=== PATIENT | female | born 1960 | race Caucasian/White ===

== ENCOUNTER 2018-08-07 19:03 | Emergency (ER) | payer OTHER ==
[~2018-08-07] VITALS: Ht 175.3 cm; Wt 86.6 kg
[~2018-08-07 19:03] MED LIST: LISINOPRIL10 MG PO
[2018-08-07 19:42] LABS: ABSOLUTE EOSINOPHILS 0.3 thou/uL (0.0-0.7); ABSOLUTE LYMPHOCYTES 2.8 thou/uL (0.8-5.3); ABSOLUTE MONOCYTES 0.6 thou/uL (0.0-1.2); ABSOLUTE NEUTROPHILS 3.9 thou/uL (1.6-8.1); BASOPHILS 0.6 %; HEMATOCRIT 40.2 % (37.0-47.0); HEMOGLOBIN 13.6 gm/dL (12.0-15.0); LYMPHOCYTES 36.1 %; MCH 30.1 pg (26.0-34.0); MCHC 33.8 g/dL (28.0-37.0); MCV 89.2 fL (80.0-100.0); MONOCYTES 8.2 %; MPV 9.1 fl. (7.2-11.1); NUCLEATED RBCS 0 /100WBC; PLATELET COUNT* 262 thou/uL (150-400); POLYS 51.1 %; RBC 4.51 mil/uL (4.20-5.00); RDW-CV 13.5 % (10.5-14.5); WBC 7.7 thou/uL (4.0-11.0)
[2018-08-07 19:46] LABS: ANION GAP 6 mmol/L (7-16); BUN 21 mg/dL (7-18); CALCIUM 8.9 mg/dL (8.5-10.1); CHLORIDE 103 mmol/L (98-107); CO2 30 mmol/L (21-32); CREATININE 0.9 mg/dL (0.6-1.3); GLUCOSE 103 mg/dL (70-99); POTASSIUM 3.2 mmol/L (3.5-5.1); SODIUM 139 mmol/L (136-145)
[2018-08-07 19:49] LABS: PROTIME 10.1 Seconds (9.20-11.50)
[2018-08-07 19:57] LABS: ALBUMIN 3.6 g/dL (3.4-5.0); ALKALINE PHOSPHATASE 95 U/L (46-116); LIPASE 160 U/L (73-393); NT-PRO BRAIN NAT PEPTIDE 63 pg/mL (<300); SGOT 19 U/L (15-37); SGPT 34 U/L (30-65); TOTAL BILIRUBIN 0.4 mg/dL (<0.1-1.0); TOTAL PROTEIN 6.9 g/dL (6.4-8.2); TROPONIN-I LEVEL <0.06 ng/mL (<0.06)
[2018-08-07 19:58] LABS: URINE BILIRUBIN NEGATIVE (Negative); URINE BLOOD NEGATIVE (Negative); URINE CLARITY CLEAR; URINE COLOR STRAW; URINE GLUCOSE-RANDOM NEGATIVE (Negative); URINE KETONES NEGATIVE (Negative); URINE LEUKOCYTES-REFLEX NEGATIVE (Negative); URINE NITRITE-REFLEX NEGATIVE (Negative); URINE PROTEIN NEGATIVE (Negative); URINE UROBILINOGEN 0.2 E.U./dl (0.2-1.0)
[2018-08-07 21:50] VITALS: BP 149/81
--- NOTE | 2018-08-08 11:07 | EKG ---
[place] [address] ELECTROCARDIOGRAM REPORT Name: GENEANDRZEJ Room: [facility]#: [id number] Admission: 08/07/18 Attend Phys: Discharge: 08/07/18 Date of : 58 Report #: [id number] THIS REPORT FOR: //name// 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[place] : 1960 Requested By: Lorena Georges Order Number: [id number] MD: Stefano Gurrola Measurements Intervals [place] Rate: 72 P: 22 W[place]: 145 QRS: -2 QRSD: 93 T: 60 QT: 404 QTc: 443 Interpretive Statements Sinus rhythm Abnormal R-wave progression, early transition Compared to ECG 08/10/2010 16:13:18 No significant changes Electronically Signed On 08-08-2018 11:07:49 [employer] by Stefano Gurrola [email or web address] <ELECTRONICALLY SIGNED> By: Stefano Gurrola MD, [facility] 08/08/18 1107 09 09 Stefano Gurrola MD, FACC /EPI
== END 2018-08-07 21:51 | disposition home or self-care (01) ==
LOC: M.ERS 19:03
PROVIDERS: Emergency Medicine
DX: R07.89 Other chest pain (principal); Z90.710 Acquired absence of both cervix and uterus; Z98.890 Other specified postprocedural states

== ENCOUNTER 2018-08-23 15:15 | Emergency (ER) | payer OTHER ==
[~2018-08-23] VITALS: Ht 175.3 cm; Wt 90.7 kg
[2018-08-23] MEDS ORDERED: COZAAR 25 MG TA25 M1 PO (15:29)
[2018-08-23] MEDS ORDERED: BACTRIM DS TAB1 EACH PO (15:29)
[2018-08-23] MEDS ORDERED: TYLENOL EXTRA500 MG PO (15:30)
[2018-08-23 15:48] LABS: HEMATOCRIT 41.8 % (37.0-47.0); HEMOGLOBIN 13.9 gm/dL (12.0-15.0); MCH 29.5 pg (26.0-34.0); MCHC 33.3 g/dL (28.0-37.0); MCV 88.4 fL (80.0-100.0); MPV 8.7 fl. (7.2-11.1); NUCLEATED RBCS 0 /100WBC; PLATELET COUNT* 267 thou/uL (150-400); RBC 4.73 mil/uL (4.20-5.00); RDW-CV 13.6 % (10.5-14.5); WBC 13.9 thou/uL (4.0-11.0)
[2018-08-23 15:49] LABS: URINE BILIRUBIN NEGATIVE (Negative); URINE BLOOD NEGATIVE (Negative); URINE CLARITY CLEAR; URINE COLOR YELLOW; URINE GLUCOSE-RANDOM NEGATIVE (Negative); URINE KETONES TRACE (Negative); URINE LEUKOCYTES-REFLEX NEGATIVE (Negative); URINE NITRITE-REFLEX NEGATIVE (Negative); URINE PROTEIN NEGATIVE (Negative); URINE SPECIFIC GRAVITY <= 1.005 (1.005-1.030); URINE UROBILINOGEN 0.2 E.U./dl (0.2-1.0)
[2018-08-23 15:58] LABS: CALCIUM 8.8 mg/dL (8.5-10.1); CREATININE 0.9 mg/dL (0.6-1.3); POTASSIUM 3.3 mmol/L (3.5-5.1)
[2018-08-23 16:09] LABS: URINE BILIRUBIN NEGATIVE (Negative); URINE BLOOD NEGATIVE (Negative); URINE CLARITY CLEAR; URINE COLOR YELLOW; URINE GLUCOSE-RANDOM NEGATIVE (Negative); URINE KETONES NEGATIVE (Negative); URINE LEUKOCYTES-REFLEX NEGATIVE (Negative); URINE NITRITE-REFLEX NEGATIVE (Negative); URINE PROTEIN NEGATIVE (Negative); URINE SPECIFIC GRAVITY <= 1.005 (1.005-1.030); URINE UROBILINOGEN 0.2 E.U./dl (0.2-1.0)
[2018-08-23 16:14] LABS: ALBUMIN 3.6 g/dL (3.4-5.0); TOTAL BILIRUBIN 0.8 mg/dL (<0.1-1.0); TOTAL PROTEIN 7.3 g/dL (6.4-8.2)
[2018-08-23 16:21] LABS: ABSOLUTE MONOCYTES 0.8 thou/uL (0.0-1.2); ABSOLUTE NEUTROPHILS 12.1 thou/uL (1.6-8.1); PLATELET ESTIMATE ADEQUATE
[2018-08-23 17:18] LABS: INFLUENZA A ANTIGEN None Detected (None Detect); INFLUENZA B ANTIGEN None Detected (None Detect)
[2018-08-23 17:58] VITALS: BP 170/86
[2018-08-23] MEDS ORDERED: AUGMENTIN 500-1 EACH PO (18:04)
[2018-08-23] MEDS ORDERED: ACETAMINOPHEN-1 EAC1 PO (18:04)
[2018-08-23] MEDS ORDERED: CEFDINIR300 MG PO (18:06)
== END 2018-08-23 18:13 | disposition home or self-care (01) ==
LOC: M.ERS 15:15
PROVIDERS: Physician Assistant
DX: R50.9 Fever, unspecified (principal); M54.5 Low back pain; Z90.710 Acquired absence of both cervix and uterus

== ENCOUNTER 2020-11-17 17:27 | Emergency (ER) | payer OTHER ==
[~2020-11-17] VITALS: Ht 175.3 cm; Wt 98.4 kg
[~2020-11-17 17:27] MED LIST changes: +ACETAMINOPHEN-1 EAC1 PO; +AUGMENTIN 500-1 EACH PO; +BACTRIM DS TAB1 EACH PO; +CEFDINIR300 MG PO; +COZAAR 25 MG TA25 M1 PO; +TYLENOL EXTRA500 MG PO
[2020-11-17] MEDS ORDERED: LINZESS145 MCG PO (17:48)
[2020-11-17] MEDS ORDERED: METOPROLOL SUCC50 MG PO (17:48)
[2020-11-17] MEDS ORDERED: SERTRALINE HCL100 MG PO (17:48)
[2020-11-17] MEDS ORDERED: DULCOLAX STOOL100 M1 PO (17:49)
[2020-11-17 18:09] LABS: CALCIUM 8.8 mg/dL (8.5-10.1); CREATININE 1.1 mg/dL (0.6-1.3); POTASSIUM 3.4 mmol/L (3.5-5.1)
[2020-11-17 18:13] LABS: ALBUMIN 3.7 g/dL (3.4-5.0); TOTAL BILIRUBIN 0.8 mg/dL (<0.1-1.0); TOTAL PROTEIN 7.5 g/dL (6.4-8.2)
[2020-11-17 18:17] LABS: ABSOLUTE EOSINOPHILS 0.1 thou/uL (0.0-0.7); ABSOLUTE LYMPHOCYTES 1.5 thou/uL (0.8-5.3); ABSOLUTE MONOCYTES 0.8 thou/uL (0.0-1.2); ABSOLUTE NEUTROPHILS 6.3 thou/uL (1.6-8.1); BASOPHILS 0.3 %; EOSINOPHILS 1.2 %; HEMATOCRIT 37.9 % (37.0-47.0); HEMOGLOBIN 12.8 gm/dL (12.0-15.0); LYMPHOCYTES 17.1 %; MCHC 33.7 g/dL (28.0-37.0); MCV 88.8 fL (80.0-100.0); MONOCYTES 9.1 %; MPV 9.6 fl. (7.2-11.1); NUCLEATED RBCS 0 /100WBC; PLATELET COUNT* 242 thou/uL (150-400); POLYS 72.3 %; RBC 4.26 mil/uL (4.20-5.00); RDW-CV 14.2 % (10.5-14.5); WBC 8.7 thou/uL (4.0-11.0)
[2020-11-17] MEDS ORDERED: PERCOCET PO (18:49)
[2020-11-17] MEDS ORDERED: FLOMAX0.4 MG PO (18:49)
[2020-11-17] MEDS ORDERED: CIPROFLOXACIN500 M1 PO (18:49)
[2020-11-17 19:55] LABS: URINE BILIRUBIN NEGATIVE (Negative); URINE BLOOD NEGATIVE (Negative); URINE CLARITY CLEAR; URINE COLOR YELLOW; URINE GLUCOSE-RANDOM NEGATIVE (Negative); URINE KETONES 1+ (Negative); URINE LEUKOCYTES-REFLEX NEGATIVE (Negative); URINE NITRITE-REFLEX NEGATIVE (Negative); URINE PROTEIN NEGATIVE (Negative); URINE UROBILINOGEN 0.2 E.U./dl (0.2-1.0)
[2020-11-17 20:10] VITALS: BP 180/78
== END 2020-11-17 20:25 | disposition home or self-care (01) ==
LOC: M.ERS 17:27
PROVIDERS: Family Medicine
DX: N13.2 Hydronephrosis with renal and ureteral calculous obstruction (principal); I10 Essential (primary) hypertension; Z87.442 Personal history of urinary calculi; Z90.711 Acquired absence of uterus with remaining cervical stump; Z90.89 Acquired absence of other organs; Z98.84 Bariatric surgery status; Z79.899 Other long term (current) drug therapy

== ENCOUNTER 2021-01-26 11:42 | Emergency (ER) | payer OTHER ==
[~2021-01-26] VITALS: Ht 175.3 cm; Wt 86.2 kg
[~2021-01-26 11:42] MED LIST changes: +CIPROFLOXACIN500 M1 PO; +DULCOLAX STOOL100 M1 PO; +FLOMAX0.4 MG PO; +LINZESS145 MCG PO; +METOPROLOL SUCC50 MG PO; +PERCOCET PO; +SERTRALINE HCL100 MG PO
[2021-01-26 12:17] LABS: URINE BILIRUBIN NEGATIVE (Negative); URINE BLOOD NEGATIVE (Negative); URINE CLARITY CLEAR; URINE COLOR YELLOW; URINE GLUCOSE-RANDOM NEGATIVE (Negative); URINE KETONES TRACE (Negative); URINE LEUKOCYTES-REFLEX NEGATIVE (Negative); URINE NITRITE-REFLEX NEGATIVE (Negative); URINE PROTEIN NEGATIVE (Negative)
[2021-01-26 13:10] VITALS: BP 137/88
== END 2021-01-26 13:11 | disposition home or self-care (01) ==
LOC: M.ERS 11:42
PROVIDERS: Nurse Practitioner Family
DX: K62.5 Hemorrhage of anus and rectum (principal); Z79.899 Other long term (current) drug therapy; Z90.710 Acquired absence of both cervix and uterus; Z90.89 Acquired absence of other organs; Z87.442 Personal history of urinary calculi